=== PATIENT | female | born 1980 | race Hispanic/Latino ===

== ENCOUNTER 2017-09-03 07:52 | Inpatient (IN) | payer SELFPAY ==
[~2017-09-03] VITALS: Ht 154.9 cm; Wt 95.7 kg
[2017-09-03] MEDS ORDERED: ALBUTEROL/IPRATROPIUM 3 ML NEB NEB ONE (08:15)
--- NOTE | 2017-09-03 08:37 | Diagnostic Imaging Report ---
PROCEDURE: X-RAY CHEST, TWO VIEWS COMPARISON: None. INDICATIONS: SOB FINDINGS: Lungs are reasonably well inflated. No focal consolidation or pleural effusion. Perihilar prominence of the pulmonary interstitium. Normal heart size and mediastinal contour. No acute osseous abnormalities. CONCLUSION: Prominence of the pulmonary interstitium suggests reactive airway disease or atypical infection. No consolidative pneumonia. Dictated by: Matthew Mccain M.D. on 09/03/2017 at 8:39 Electronically approved by: Matthew Mccain M.D. on 09/03/2017 at 8:39
[2017-09-03 08:57] LABS: PREGNANCY TEST, URINE NEGATIVE (NEGATIVE)
[2017-09-03 09:03] LABS: BILIRUBIN,URINE NEGATIVE (NEGATIVE); CLARITY,URINE CLEAR (CLEAR); COLOR,URINE YELLOW (YELLOW); KETONES,URINE NEGATIVE (NEGATIVE); LEUKOCYTE ESTERASE ,URINE NEGATIVE (NEGATIVE); NITRITE,URINE NEGATIVE (NEGATIVE); PROTEIN,URINE DIPSTICK NEGATIVE (NEGATIVE); URINE UROBILINOGEN 0.2 mg/dL (0.2 - 1)
[2017-09-03 09:11] LABS: STREPTOCOCCUS GRP A ANTIGEN NEGATIVE (NEGATIVE)
[2017-09-03 09:14] LABS: INR 1.13; PARTIAL THROMBOPLASTIN TIME 19.4 seconds (23.8-35.5); PROTHROMBIN TIME 13.6 seconds (11.9-14.5)
[2017-09-03 09:19] LABS: ALANINE AMINOTRANSFERASE 8 IU/L (0-55); ALBUMIN 3.2 g/dL (3.5-5.0); ALBUMIN/GLOBULIN RATIO 0.6 (0.8-2.0); ALKALINE PHOSPHATASE 75 IU/L (40-150); ANION GAP 11.9 mmol/L (8-16); BLOOD UREA NITROGEN 5 mg/dL (7-26); BUN/CREATININE RATIO 7 (6-25); CALCIUM 9.3 mg/dL (8.4-10.2); CARBON DIOXIDE 25 mmol/L (22-29); CHLORIDE 108 mmol/L (98-107); CREATINE KINASE 35 IU/L (29-168); CREATININE, SERUM 0.69 mg/dL (0.57-1.11); EST GLOMERULAR FILTRATION RATE > 60 ML/MIN (60-); GLUCOSE 104 mg/dL (74-118); POTASSIUM 3.9 mmol/L (3.5-5.1); SODIUM 141 mmol/L (136-145)
[2017-09-03 09:20] LABS: RBC,URINE 0-5 /HPF (0-5)
[2017-09-03 09:21] LABS: EPITHELIAL CELLS,URINE FEW /LPF; INFLUENZAE A&B ANTIGEN (RAPID) NEGATIVE (NEGATIVE)
[2017-09-03 09:29] LABS: BASOPHILS % 0.4 % (0.0-1.0); EOSINOPHILS # (AUTO) 0.3 (0.0-0.4); EOSINOPHILS % 2.9 % (0.0-6.0); HEMATOCRIT 29.6 % (34.2-44.1); HEMOGLOBIN 8.9 g/dL (12.0-16.0); MEAN CORPUSCULAR HEMOGLOBIN 20.1 pg (28-32); MEAN CORPUSCULAR HGB CONC 30.1 g/dL (31-35); MEAN CORPUSCULAR VOLUME 66.8 fL (81-99); MONOCYTES # (AUTO) 0.7 (0.2-0.8); MONOCYTES % 8.2 % (4.4-11.3); NEUTROPHILS % 66.2 % (38.7-80.0); PLATELET COUNT 333 x10e3/uL (140-360); RED BLOOD COUNT 4.43 x10e6/uL (3.6-5.1); RED CELL DISTRIBUTION WIDTH 17.2 % (11.7-14.4)
--- NOTE | 2017-09-03 11:40 | Diagnostic Imaging Report ---
PROCEDURE: CT scan of the chest WITH intravenous contrast, using standard protocol. TECHNIQUE: The chest was scanned utilizing a multidetector helical scanner from the lung apex through the level of the adrenal glands after the IV administration of 71 cc of Isovue 370. Coronal and sagittal multiplanar reformations were obtained. Infiltration of approximately 90 cc of contrast into the left upper arm was noted after the initial injection. Warm compresses were applied. A new intravenous catheter was placed in the examination was completed without incident with the intravenous injection of an additional 70 one cc of Isovue 370. COMPARISON: Chest radiograph same day. INDICATIONS: INFECTION IN LUNGS, LOW O2 SATURATION, PULMONARY EMBOLISM FINDINGS: Vasculature: The main pulmonary artery, right and left pulmonary arteries, and their visualized lobar and segmental branches are patent, without filling defect. The pulmonary outflow tract is of normal caliber. No ectasia or aneurysmal dilatation of the thoracic aorta. Great vessel origins are normal in caliber and configuration. Lungs and Airways: Adjacent nodules in the right middle lobe along the minor fissure measure 8 and 9 mm, seen on series 4 image 56 and 57. Confluent, lower lobe predominant ground glass opacities with interlobular septal thickening and intervening areas of hyperlucency. No consolidations, bronchiectasis, or gross fibrotic change. Pleura: No pleural effusion. Heart and mediastinum: The visualized portions of the thyroid gland are normal. Mild hilar and mediastinal lymphadenopathy for example a subcarinal lymph node measures 1.5 cm short axis. A right upper paratracheal node measures 1 cm short axis. No axillary lymphadenopathy. Trace pericardial effusion. Soft tissues: No focal soft tissue abnormality. Abdomen: Visualized portions of the liver, spleen, adrenals, kidneys, and pancreas are unremarkable. Bones: No osseous destructive lesions or focal soft tissue abnormality. IMPRESSION: No pulmonary embolus to the level of the segmental branch pulmonary arteries. Lower lobe predominant groundglass opacities with scattered foci of air trapping and interlobular septal thickening. Differential diagnosis includes atypical infection, interstitial edema, hypersensitivity pneumonitis, and interstitial lung disease such as nonspecific interstitial pneumonia (NSIP). Subcentimeter nodules along the right minor fissure may reflect intrapulmonary lymph nodes. Followup CT scan of the chest without contrast in 3-6 months is suggested to document stability or resolution. Dictated by: Matthew Mccain M.D. on 09/03/2017 at 11:42 Electronically approved by: Matthew Mccain M.D. on 09/03/2017 at 11:42
[2017-09-03] MEDS ORDERED: ONDANSETRON HCL 4 MG ORAL DISINTEGRATING TAB PO PRN (12:15)
[2017-09-03] MEDS: SODIUM CHLORIDE 0.9% 1000ML 1,000 ML IV SCH ×2 (13:00→22:02)
[2017-09-03] MEDS: CEFTRIAXONE SOD 1 GM VIAL IV SCH (13:00)
--- OUTSIDE RECORDS SUMMARY | 2017-09-03 13:12 | XMS REPORT ---
[facility] Address Unknown Phone Unavailable Care Team Providers Care Security Investigator Name Role Phone STEPHEN JACINTO Unavailable Unavailable Problems This patient has no known problems. Allergies, Adverse Reactions, Alerts This patient has no known allergies or adverse reactions. Medications This patient has no known medications. Results Test Description Test Time Test Comments Text Results Atomic Results Result Comments CT CHEST W [place] [address] Patient Name: MATTEO SANDERS MR #: [id number] : 1980 Age/Sex: 37/F Req #: [id number] Adm Physician: Ordered by: LEONARD PITTMAN COUTURE DRESSMAKER Report #: [id number] Location: ER Room/Bed: Procedure: [id number] CT/CT CHEST W Exam Date: 09/03/17 Exam Time: 1016 REPORT STATUS: Signed PROCEDURE: CT scan of the chest WITH intravenous contrast, using standard protocol. TECHNIQUE: The chest was scanned utilizing a multidetector helical scanner from the lung apex through the level of the adrenal glands after the IV administration of 71 cc of Isovue 370. Coronal and sagittal multiplanar reformations were obtained. Infiltration of approximately 90 cc of contrast into the left upper arm was noted after the initial injection. Warm compresses were applied. A new intravenous catheter was placed in the examination was completed without incident with the intravenous injection of an additional 70 one cc of Isovue 370. COMPARISON: Chest radiograph same day. INDICATIONS: INFECTION IN LUNGS, LOW O2 SATURATION, PULMONARY EMBOLISM FINDINGS: Vasculature: The main pulmonary artery, right and left pulmonary arteries, and their visualized lobar and segmental branches are patent, without filling defect. The pulmonary outflow tract is of normal caliber. No ectasia or aneurysmal dilatation of the thoracic aorta. Great vessel origins are normal in caliber and configuration. Lungs and Airways: Adjacent nodules in the right middle lobe along the minor fissure measure 8 and 9 mm, seen on series 4 image 56 and 57. Confluent, lower lobe predominant ground glass opacities with interlobular septal thickening and intervening areas of hyperlucency. No consolidations, bronchiectasis, or gross fibrotic change. Pleura: No pleural effusion. Heart and mediastinum: The visualized portions of the thyroid gland are normal. Mild hilar and mediastinal lymphadenopathy for example a subcarinal lymph node measures 1.5 cm short axis. A right upper paratracheal node measures 1 cm short axis. No axillary lymphadenopathy. Trace pericardial effusion. Soft tissues: No focal soft tissue abnormality. Abdomen: Visualized portions of the liver, spleen, adrenals, kidneys, and pancreas are unremarkable. Bones: No osseous destructive lesions or focal soft tissue abnormality. IMPRESSION: No pulmonary embolus to the level of the segmental branch pulmonary arteries. Lower lobe predominant groundglass opacities with scattered foci of air trapping and interlobular septal thickening. Differential diagnosis includes atypical infection, interstitial edema, hypersensitivity pneumonitis, and interstitial lung disease such as nonspecific interstitial pneumonia (NSIP). Subcentimeter nodules along the right minor fissure may reflect intrapulmonary lymph nodes. Followup CT scan of the chest without contrast in 3-6 months is suggested to document stability or resolution. Dictated by: Anna Izquierdo M.D. on 09/03/2017 at 11:42 Electronically approved by: Anna Izquierdo M.D. on 09/03/2017 at 11:42 Dictated By: ANNA IZQUIERDO MD 1142 Transcribed By: LAMIN on 09/03/17 1142 COPY TO: LEONARD PITTMAN COUTURE DRESSMAKER CHEST 2 VIEWS [place] [address] Patient Name: MATTEO SANDERS MR #: [id number] : 1980 Age/Sex: 37/F Req #: [id number] [facility] Physician: Ordered by: LEONARD PITTMAN NP Report #: [id number] Location: ER Room/Bed: Procedure: [id number] DX/CHEST 2 VIEWS Exam Date: 09/03/17 Exam Time: 854 REPORT STATUS: Signed PROCEDURE: X-RAY CHEST, TWO VIEWS COMPARISON: None. INDICATIONS: SOB FINDINGS: Lungs are reasonably well inflated. No focal consolidation or pleural effusion. Perihilar prominence of the pulmonary interstitium. Normal heart size and mediastinal contour. No acute osseous abnormalities. CONCLUSION: Prominence of the pulmonary interstitium suggests reactive airway disease or atypical infection. No consolidative pneumonia. Dictated by: Anna Izquierdo M.D. on 09/03/2017 at 8:39 Electronically approved by: Anna Izquierdo M.D. on 09/03/2017 at 8:39 Dictated By: ANNA IZQUIERDO MD 8 Transcribed By: LAMIN on 09/03/17838 COPY TO: LEONARD PITTMAN NP
[2017-09-03] MEDS ORDERED: MULTI-VITAMIN1 EACH PO (13:16)
[2017-09-03] MEDS ORDERED: IBUPROFEN200 MG PO (13:16)
[2017-09-03 17:35] LABS: CREATINE KINASE 43 IU/L (29-168)
[2017-09-03 20:00] VITALS: BP 146/84
--- NOTE | 2017-09-03 20:10 | Consultation ---
DATE OF CONSULTATION: September 03, 2017 PULMONARY CONSULTATION REASON FOR CONSULTATION: Abnormal CT of the chest. HISTORY OF PRESENT ILLNESS: Ms. Rosenthal is a 37-year-old female who was sent to the emergency room by the PCP for lung infection. Patient was seen in the clinic a week ago and started Levaquin. She was feeling short of breath as well. Denies any fever, chills, joint pain, any exposure to pets or fumes[place] She has no exposure to farms as well. She denies any rash, any joint pain. REVIEW OF SYSTEMS: GENERAL: Denies any fever or chills. HEAD: Denies any head trauma. ENT: Denies any earaches. CVS: Denies any chest pain. RESPIRATORY: Shortness of breath. The rest is negative except as in HPI. PAST MEDICAL HISTORY: None. PAST SURGICAL HISTORY: None. FAMILY/SOCIAL HISTORY: She does not smoke and does not drink. PHYSICAL EXAMINATION: VITALS: Temperature 98.4, pulse of 90, blood pressure 117/70, pO2 sat 92% on room air. I removed the oxygen and I checked it. HEENT: Normocephalic, atraumatic. Pupils reactive. NECK: Supple. CHEST: Clear to auscultation bilaterally. No wheezing, no crackles. HEART: S1 S2 audible. ABDOMEN: Soft and nontender. EXTREMITIES: No clubbing, cyanosis or edema. NEUROLOGIC: Awake and alert. LABORATORY DATA: CT scan I reviewed the images showing bilateral ground glass opacities and small lymph nodes. ASSESSMENT AND PLAN: Ms. Rosenthal is a 37-year-old female with diffuse alveolar lung disease bilaterally. However, the patient is not hypoxic and has mild shortness of breath. She denies any rash or any joint pain. No exposure history. This can be due to acute hypersensitive pneumonitis versus pneumonia. I will start the patient on IV Solu-Medrol. She has been started on IV antibiotics for community-acquired pneumonia. I will continue these medications. She was definitely need to follow CAT scan in 3 months and does changes persistent. She will definitely need a followup CAT scan in 3 months. If the changes persist, then she will need a lung biopsy for definitive diagnosis. I will sign off . Job#: [id number] GH
[2017-09-03] MEDS ORDERED: SODIUM CHLORIDE 0.9% 50ML 50 ML ONE (20:20)
[2017-09-03] MEDS ORDERED: IOPAMIDOL 370 MG/ML 200 ML INFUS..BTL INJ ONE (20:21)
[2017-09-03] MEDS: METHYLPREDNISOLONE SOD SUCC 40 MG/ML VIAL IV SCH (22:02)
[2017-09-03 23:23] VITALS: BP 146/84
[2017-09-03 23:42] VITALS: BP 146/84
[2017-09-04] VITALS (9 sets, daily range): BP systolic 114–137; BP diastolic 68–78
[2017-09-04] MEDS: CEFTRIAXONE SOD 1 GM VIAL IV SCH ×2 (00:24→13:26)
[2017-09-04] MEDS: SODIUM CHLORIDE 0.9% 1000ML 1,000 ML IV SCH ×3 (05:16→21:55)
[2017-09-04] MEDS: METHYLPREDNISOLONE SOD SUCC 40 MG/ML VIAL IV SCH ×3 (05:16→21:55)
--- NOTE | 2017-09-04 06:40 | Diagnostic Imaging Report ---
EXAM: CHEST SINGLE (PORTABLE), AP 1 view INDICATION: Hypoxia COMPARISON: PA and lateral view of the chest September 03, 2017 FINDINGS: LINES/TUBES: None LUNGS: Nonspecific bilateral airspace opacities. PLEURA: No effusions or pneumothorax. HEART AND MEDIASTINUM: Stable appearance. BONES AND SOFT TISSUES: No acute findings. IMPRESSION: No significant interval change. Findings suggest pulmonary edema. Signed by: Dr. Cecily Pike M.D. on 09/04/2017 6:37 AM
[2017-09-04 07:13] LABS: BASOPHILS % 0.2 % (0.0-1.0); HEMATOCRIT 31.4 % (34.2-44.1); HEMOGLOBIN 9.4 g/dL (12.0-16.0); LYMPHOCYTES # (AUTO) 0.9 (1.0-3.2); LYMPHOCYTES % 11.4 % (18.0-39.1); MEAN CORPUSCULAR HEMOGLOBIN 20.2 pg (28-32); MEAN CORPUSCULAR HGB CONC 29.9 g/dL (31-35); MEAN CORPUSCULAR VOLUME 67.4 fL (81-99); MONOCYTES # (AUTO) 0.1 (0.2-0.8); MONOCYTES % 1.2 % (4.4-11.3); NEUTROPHILS # (AUTO) 7.1 (2.1-6.9); NEUTROPHILS % 86.5 % (38.7-80.0); PLATELET COUNT 376 x10e3/uL (140-360); RED BLOOD COUNT 4.66 x10e6/uL (3.6-5.1); RED CELL DISTRIBUTION WIDTH 17.2 % (11.7-14.4)
[2017-09-04 07:56] LABS: ANION GAP 11.2 mmol/L (8-16); BLOOD UREA NITROGEN 6 mg/dL (7-26); BUN/CREATININE RATIO 10 (6-25); CALCIUM 8.9 mg/dL (8.4-10.2); CARBON DIOXIDE 23 mmol/L (22-29); CHLORIDE 109 mmol/L (98-107); CREATINE KINASE 26 IU/L (29-168); CREATININE, SERUM 0.63 mg/dL (0.57-1.11); EST GLOMERULAR FILTRATION RATE > 60 ML/MIN (60-); GLUCOSE 149 mg/dL (74-118); POTASSIUM 4.2 mmol/L (3.5-5.1); SODIUM 139 mmol/L (136-145)
[2017-09-04] MEDS ORDERED: AZITHROMYCIN 500MG/NS 250 ML 250 ML IV SCH (09:00)
[2017-09-04] MEDS: AZITHROMYCIN 500MG/NS 250 ML 250 ML IV SCH (12:37)
[2017-09-04] MEDS: ALBUTEROL/IPRATROPIUM 3 ML NEB NEB SCH ×2 (14:15→19:35)
[2017-09-04 15:48] LABS: HIV 1&2 AB SCREEN NON-REACTIVE (NONREACTIVE)
[2017-09-05] VITALS (8 sets, daily range): BP systolic 114–136; BP diastolic 56–82
[2017-09-05] MEDS: CEFTRIAXONE SOD 1 GM VIAL IV SCH ×2 (00:08→12:08)
[2017-09-05] MEDS: ALBUTEROL/IPRATROPIUM 3 ML NEB NEB SCH ×5 (00:55→20:25)
[2017-09-05] MEDS: METHYLPREDNISOLONE SOD SUCC 40 MG/ML VIAL IV SCH ×2 (05:19→14:37)
[2017-09-05] MEDS: SODIUM CHLORIDE 0.9% 1000ML 1,000 ML IV SCH ×3 (05:19→22:07)
--- NOTE | 2017-09-05 06:14 | Diagnostic Imaging Report ---
EXAM: CHEST SINGLE (PORTABLE), AP 1 view INDICATION: Hypoxia, shortness of breath COMPARISON: AP view of the chest September 04, 2017 FINDINGS: LINES/TUBES: None LUNGS: Vascular congestion and bibasilar atelectasis. PLEURA: No effusions or pneumothorax. HEART AND MEDIASTINUM: Stable appearance. BONES AND SOFT TISSUES: No acute findings. IMPRESSION: Vascular congestion/edema and bibasilar atelectasis. Signed by: Dr. Cecily Pike M.D. on 09/05/2017 6:10 AM
--- NOTE | 2017-09-05 09:16 | Consultation ---
DATE OF CONSULTATION: September 04, 2017 REASON FOR CONSULTATION: Pneumonia. HISTORY OF PRESENT ILLNESS: This patient is a very pleasant 37-year-old female who has been sick for 2 weeks. Apparently she started to have fever, chills and cough. She saw a physician who gave her Levaquin. That was 2 weeks ago and she says she is still having cough, she is still not feeling well. Patient was sent here. PAST MEDICAL HISTORY: Denies. PAST SURGICAL HISTORY: Denies. ALLERGIES: NKA. SOCIAL HISTORY: There is no smoking, drug abuse or alcohol abuse. She tells she has been coughing for 3 weeks now without any improvement. The cough is minimally productive. REVIEW OF SYSTEMS HEENT: Negative. PULMONARY: Negative. CARDIAC: Negative. : Negative. All symptoms within normal limits. LABORATORY DATA: Blood cultures are negative. Her white count is 8.16, hemoglobin 9.4. Laboratory data all reviewed. Influenza negative. Group A is negative. She had a chest CT that showed ground glass infiltrate in the right lower lobe. Patient has no fever since admission. PHYSICAL EXAMINATION GENERAL: She is currently alert, oriented. Does not seem to be in acute distress. VITALS: Stable. Currently afebrile. HEENT: She is not icteric. NECK: Supple. CHEST: Few crackles. COR: S1, S2. No S3, S4 or murmur. ABDOMEN: Soft. IMPRESSION: Bilateral space opacity maybe atypical pneumonia. Will check for human immunodeficiency virus. Continue with Rocephin, azithromycin. Will see how she is going to do over the next 24 to 48 hours. Job#: [id number] ANN MARIE
[2017-09-05] MEDS: AZITHROMYCIN 500MG/NS 250 ML 250 ML IV SCH (12:08)
--- NOTE | 2017-09-05 15:44 | Consultation ---
DATE OF CONSULTATION: September 05, 2017 CARDIOLOGY CONSULTATION REASON FOR CONSULTATION: Dyspnea. HISTORY OF PRESENT ILLNESS: This is a 37-year-old woman without significant past medical history, who presents with complaints of shortness of breath for the last month. She denies any history of heart disease. She states she gets short of breath 2-3 times a week for approximately the last month. This is associated with cough. This occurs typically in the mornings and in the evenings. She denies any dyspnea on exertion. She denies chest pain, palpitations, edema, orthopnea, PND, lightheadedness, or syncope. She also denies any fever or chills. On presentation to the ER, CTA of the chest was performed, which did not show any evidence of pulmonary embolus. However, there were ground-glass opacities with scattered foci of air trapping and intralobular septal thickening. Infectious disease was consulted, and the patient was started on IV antibiotics. Cardiology was consulted for possible cardiac etiology of the patient's shortness of breath. REVIEW OF SYSTEMS: Negative except as per HPI. PAST MEDICAL HISTORY: None. PAST SURGICAL HISTORY: None. ALLERGIES: NO KNOWN DRUG ALLERGIES. MEDICATIONS: Please see medication list. SOCIAL HISTORY: Denies tobacco, alcohol or illicit drugs. 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 FAMILY HISTORY: Noncontributory. PHYSICAL EXAMINATION VITALS: Temperature 98.5 degrees, pulse 65, respiratory rate 18, blood pressure 127/78, oxygen saturation 94% on 2 L nasal cannula. GENERAL: Obese woman, well-developed, well-nourished and in no acute distress. HEENT: Normocephalic and atraumatic. Pupils equal. No scleral icterus. NECK: Supple. No thyromegaly or cervical lymphadenopathy. No carotid bruits. LUNGS: Clear to auscultation bilaterally. No wheezes or crackles. CARDIOVASCULAR: Normal rate. Regular rhythm. No murmur. Normal S1 and S2. ABDOMEN: Soft and nontender. EXTREMITIES: No edema. NEURO: Nonfocal exam. LABS: WBC 8.16, hemoglobin 9.4, hematocrit 31.4, and platelets 376,000. Sodium 139, potassium 4.2, chloride 109, CO2 23, BUN 6, creatinine 0.63. Troponin less than 0.001. BNP 17.1. Echocardiogram revealed normal left ventricular size and systolic function with EF between 55% and 60%. Diastolic filling pattern was normal for the age of the patient. No significant valvular abnormalities were noted. EKG is normal sinus rhythm, nonspecific T-wave abnormality. IMPRESSION 1. Dyspnea. 2. Abnormal computerized tomography of chest: Suspect atypical pneumonia. 3. Abnormal electrocardiogram with nonspecific T-wave abnormalities. RECOMMENDATIONS: The patient ruled out for myocardial infarction with serial cardiac biomarkers. Her BNP is normal. She does not endorse symptoms of congestive heart failure. Doubt her dyspnea is of cardiac etiology. We will have the staff ambulate the patient to evaluate for hypoxia. Otherwise, further evaluation per pulmonary and infectious disease. Would recommend outpatient treadmill exercise stress test for further evaluation given her EKG abnormalities once she is recovered from her current illness. Thank you for this consult. We will continue to follow. Job#: [id number] MARVIN MAYES
[2017-09-06] VITALS: BP 144/79
[2017-09-06] MEDS: CEFTRIAXONE SOD 1 GM VIAL IV SCH (01:34)
[2017-09-06] MEDS: ALBUTEROL/IPRATROPIUM 3 ML NEB NEB SCH ×2 (01:35→07:00)
[2017-09-06 05:00] VITALS: BP 132/77
[2017-09-06] MEDS: SODIUM CHLORIDE 0.9% 1000ML 1,000 ML IV SCH (06:14)
[2017-09-06 07:22] VITALS: BP 126/67
[2017-09-06 07:50] VITALS: BP 144/78
[2017-09-06] MEDS ORDERED: PREDNISONE 20 MG TAB PO SCH (09:00)
[2017-09-06] MEDS ORDERED: PREDNISONE10 MG PO ×3 (10:48→10:50)
[2017-09-06] MEDS ORDERED: LEVAQUIN500 MG PO (10:53)
--- NOTE | 2017-09-06 11:03 | Discharge Summary ---
Ms. Rosenthal is a 37-year-old female with no prior medical history. She started a month ago with cough and went to see a doctor. She was given steroids and antibiotics. She did not improve. She was short of breath, so she came to the emergency room, where she was found to be a little hypoxemic, so she was started on antibiotic and steroid. She has been seen by infectious disease and slitter scorer cut off operator. She is going to need followup in 3 months to repeat the CAT scan and probably a pulmonary biopsy if she does not get better. On physical examination today, she is awake and alert. Temperature is 97.4. Blood pressure is 144/78. The heart is regular rate. Lungs are clear to auscultation. Abdomen is soft. On the blood work, potassium is 4.2, creatinine 0.62, glucose 149. White count 8.16, hemoglobin 9.4, hematocrit 31.4. Urine culture was contaminated. Throat culture was normal. Blood cultures were negative. Chest x-ray done yesterday shows vascular congestion and bibasilar atelectasis. On the lab results immunology, she has negative JANETTE, negative HIV and influenza. DISCHARGE DIAGNOSIS: Probably atypical pneumonitis with hypoxemia, doing much better. PLAN: The plan is to discharge the patient home on p.o. Levaquin and p.o. steroids. Have her follow up with me in 1 week and with the lung doctor in 4 to 6 weeks. She is to call me or come back to the emergency room if any recurrent problem. All of this was discussed with the patient, and all questions were answered to satisfaction. EUSEBIO ROMAN MD Job#: [id number]
--- NOTE | 2017-09-06 11:19 | Progress Note ---
DATE: September 06, 2017 CARDIOLOGY PROGRESS NOTE SUBJECTIVE: Patient denies chest pain or shortness of breath. OBJECTIVE VITALS: Temperature 97.4 degrees, pulse 79, respiratory rate 20, blood pressure 126/67, oxygen saturation 95% on room air. GENERAL: Awake, alert, in no acute distress. LUNGS: Clear to auscultation bilaterally. No wheezes or crackles. CARDIOVASCULAR: Normal rate. Regular rhythm. No murmur. Normal S1 and S2. ABDOMEN: Soft and nontender. EXTREMITIES: No edema. CARDIAC MEDICATIONS: None. LABS: None today. TELEMETRY: Normal sinus rhythm. IMPRESSION 1. Dyspnea. 2. Abnormal computerized tomography of chest, suspect atypical pneumonia. 3. Abnormal electrocardiogram with nonspecific T-wave abnormalities. RECOMMENDATIONS: There was no evidence of myocardial infarction with serial cardiac biomarkers. The patient's BNP is normal. Her echocardiogram is unremarkable. Doubt her dyspnea is of cardiac etiology. Further evaluation per pulmonary and infectious disease. However, given her abnormal EKG, would recommend outpatient treadmill exercise stress test for further evaluation. Thank you for this consult. We will continue to follow. Job#: [id number]
[2017-09-06 11:56] VITALS: BP 139/84
== END 2017-09-06 12:07 | disposition home or self-care (01) | DRG 195 ==
LOC: ER 07:52 → ERHOLD 12:14 → MED/SURG3 18:00
PROVIDERS: ADMIT Internal Medicine; ATTEND Internal Medicine
DX: J18.9 Pneumonia, unspecified organism (principal); J98.4 Other disorders of lung; R09.02 Hypoxemia
CPT/HCPCS: 36415; 71045; 71046; 71260; 80048; 80053; 81001; 81025; 82550; 82553; 83518; 83880; 84484; 85025; 85379; 85610; 85730; 86039; 87040; 87070; 87086; 87390; 87400; 93005; 93306; 94640; 96361; 99284; G0433; G0435; J0456; J0696; J2920; J7030; Q9967